=== PATIENT | female | born 1940 | race Caucasian/White ===

== ENCOUNTER 2016-06-18 16:39 | Emergency (ER) | payer MEDICARE ==
[~2016-06-18] VITALS: Ht 165.1 cm; Wt 88.6 kg
[~2016-06-18 16:39] MED LIST: ADVAIR DISK1 IN; ALAVERT10 MG OR; ATENOLOL25 MG PO; AZITHROMYCIN250 MG PO; CEPHALEXIN500 MG OR; CLOBETASOL0.053 EX; COUMADIN5 M1 IV; DOCUSATE SOD100 MG PO; DUONEB INH; EFFEXOR25 MG PO; FAMVIR500 MG OR; FLEXERIL OR; GABAPENTIN300 MG PO; KLONOPIN0.5 MG PO; LASIX20 MG PO; LORTAB 10 PO; LORTAB 5 OR; LOSARTAN POT25 MG PO; LYRICA75 MG OR; Levaquin PO; MEDDOSEPAK PO; MIRAPEX0.5 MG PO; MIRAPEX1 MG PO; NAPROSYN500 MG OR; NEURONTIN300 MG OR; NITROGLYCER0.4 MG SL; PERCOCET 5/325M1 TAB OR; PLAVIX75 MG PO; PREDNISONE10 MG PO; PREVACID30 M2 OR; PROTONIX40 M2 OR; REGLAN10 MG OR; REQUIP2 MG OR; SPIRIVA IN; TRAMADOL HCL50 MG PO; VENLAFAXINE HCL75 M1 PO; WARFARIN2 MG PO; WARFARIN4 MG PO; XANAX0.25 MG PO; XANAX0.5 MG PO; ZESTRIL5 MG OR; ZPAK OR
[2016-06-18] MEDS ORDERED: SM OMEPRAZOL20 MG PO (17:18)
[2016-06-18] MEDS ORDERED: CYMBALTA30 MG PO (17:19)
[2016-06-18] MEDS ORDERED: RAMIPRIL2.5 MG PO (17:20)
[2016-06-18 17:39] LABS: HEMATOCRIT 31.2 % (37.0-47.0); HEMOGLOBIN 10.4 g/dl (12.0-16.0); IMMATURE GRANULOCYTES 0.3 % (0.0-1.0); MEAN CELL VOLUME 85.7 fL CALC (80.0-100.0); MEAN CORPUSCULAR HGB 28.6 pG CALC (26.0-32.0); MEAN CORPUSCULAR HGB CONC 33.3 g/L CALC (32.0-36.0); NEUT# 5.2 thou/uL (2.00-7.15); RED BLOOD COUNT 3.64 mill/uL (4.20-5.60); RED CELL DISTRI WIDTH 16.2 % (11.5-15.5)
[2016-06-18 17:54] LABS: ALBUMIN 4.2 g/dL (3.2-5.0); ALKALINE PHOSPHATASE 97 u/l (38-126); ANION GAP 15 (6-22 (CALC)); BILIRUBIN, TOTAL 1.9 mg/dL (0.0-1.4); BUN 20 mg/dL (8-23); BUN/CREATININE RATIO 21 (12-20 (CALC)); CARBON DIOXIDE 26 mmol/l (22-30); CHLORIDE 95 mmol/l (95-108); GFR 54 ML/MIN (>=60 (CALC)); GFR FOR AFR.AMER. > 60 ML/MIN (>=60 (CALC)); GLUCOSE 102 mg/dL (82-115); POTASSIUM 4.3 mmol/l (3.5-5.1); SGOT/AST 37 u/l (9-36); SGPT/ALT 23 u/l (11-66); SODIUM 132 mmol/l (137-146); TOTAL PROTEIN 7.9 g/dL (6.3-8.2)
[2016-06-18 18:06] LABS: MYOGLOBIN 66 ng/mL (0 - 62)
[2016-06-18] MEDS ORDERED: ZPAK PO (18:21)
[2016-06-18] MEDS ORDERED: MEDDOSEPAK PO (18:21)
[2016-06-18 18:25] LABS: URINE BILIRUBIN - DIPSTICK NEGATIVE (NEGATIVE); URINE BLOOD DIPSTICK NEGATIVE (NEGATIVE); URINE CLARITY CLEAR; URINE COLOR YELLOW; URINE GLUCOSE - DIPSTICK NEGATIVE (NEGATIVE); URINE KETONE NEGATIVE (NEGATIVE); URINE LEUK ESTERASE TRACE (NEGATIVE); URINE NITRITE - DIPSTICK NEGATIVE (Negative); URINE PH 5.5 (4.5-8.0); URINE PROTEIN - DIPSTICK NEGATIVE (NEG-TRACE); URINE SPECIFIC GRAVITY 1.015; URINE UROBILINOGEN - DIPSTICK 0.2 E.U./dL (0.2)
[2016-06-18 18:37] VITALS: BP 123/60
[2016-06-18 18:47] LABS: INFLUENZA A NONE DETECTED (NONE DETECT); INFLUENZA B NONE DETECTED (NONE DETECT)
== END 2016-06-18 18:39 | disposition left against medical advice (07) ==
LOC: ED 16:39 → ED-I 18:00 → ED 18:39
PROVIDERS: Emergency Medicine
DX: J44.1 Chronic obstructive pulmonary disease with (acute) exacerbation (principal); Z91.19 Patient's noncompliance with other medical treatment and regimen; R06.02 Shortness of breath; R05 Cough; R50.9 Fever, unspecified; R42 Dizziness and giddiness; I10 Essential (primary) hypertension